=== PATIENT | male | born 1980 | race Hispanic/Latino ===

== ENCOUNTER 2020-07-31 18:40 | Emergency (ER) | payer SELFPAY ==
[2020-07-31 21:12] LABS: Bilirubin,Urine NEG (Negative); Blood,Urine NEG (Negative); Color,Urine Yellow (Yellow); Mucus,Urine FEW /HPF; Protein,Urine <15 mg/dL mg/dL (Negative); Urobilinogen,Urine < 2.0 mg/dL (<2.0)
[2020-07-31 21:19] LABS: Amphetamine Screen,Urine PRESUMPTIVE POSITIVE; Benzodiazepines Screen,Urine PRESUMPTIVE POSITIVE; Cannabinoid Screen,Urine PRESUMPTIVE POSITIVE; Cocaine Screen,Urine PRESUMPTIVE NEGATIVE; Methadone Screen,Urine PRESUMPTIVE NEGATIVE; Opiate Screen,Urine PRESUMPTIVE NEGATIVE
--- NOTE | 2020-07-31 21:51 | Emergency Department Report ---
ED General Adult HPI - General Chief complaint: Psych Stated complaint: SI Time Seen by Provider: 07/31/20 19:08 Source: EMS Mode of arrival: Ambulatory Limitations: No Limitations - History of Present Illness Initial comments: Patient presents to the emergency department because he states he is having suicidal thoughts every 30 seconds. Patient tells me that his lives in [place] and he came to [place] 3 months ago to look for a job he has been homeless since that time. Patient states that his plan to kill himself would be by taking medications. Patient states he has a history of prior suicidal attempt which was slicing his wrist. Patient denies homicidal ideation or have auditory or visual hallucinations. 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 -: unknown Severity scale (0 -10): 0 Improves with: none Worsens with: none Associated Symptoms: denies other symptoms Treatments Prior to Arrival: none - Related Data Home Medications Medication Instructions Recorded Confirmed Last Taken Hydroxyzine HCl [hydrOXYzine] 50 mg PO TID 07/31/20 07/31/20 Unknown Trazodone HCl 150 mg PO HS 07/31/20 07/31/20 Unknown cloNIDine [Catapres] 0.1 mg PO BID 07/31/20 07/31/20 Unknown Allergies Allergy/AdvReac Type Severity Reaction Status Date / Time No Known Allergies Allergy Unverified 07/31/20 20:57 ED Review of Systems ROS: Stated complaint: SI Other details as noted in HPI Constitutional: denies: chills, fever Eyes: denies: eye pain, eye discharge, vision change ENT: denies: ear pain, throat pain Respiratory: denies: cough, shortness of breath, wheezing Cardiovascular: denies: chest pain, palpitations Endocrine: no symptoms reported Gastrointestinal: denies: abdominal pain, nausea, diarrhea Genitourinary: denies: urgency, dysuria Musculoskeletal: denies: back pain, joint swelling, arthralgia Skin: denies: rash, lesions Neurological: denies: headache, weakness, paresthesias Psychiatric: suicidal thoughts. denies: anxiety, depression, auditory hallucinations, visual hallucinations, homicidal thoughts Hematological/Lymphatic: denies: easy bleeding, easy bruising ED Past Medical Hx - Past Medical History Hx Psychiatric Treatment: Yes (PTSD Bipolar, personality disorder) Additional medical history: Right arm sprain 3-4 days ago - Social History Smoking Status: Current Every Day Smoker Substance Use Type: Alcohol, Marijuana - Medications Home Medications: Home Medications Medication Instructions Recorded Confirmed Last Taken Type Hydroxyzine HCl [hydrOXYzine] 50 mg PO TID 07/31/20 07/31/20 Unknown History Trazodone HCl 150 mg PO HS 07/31/20 07/31/20 Unknown History cloNIDine [Catapres] 0.1 mg PO BID 07/31/20 07/31/20 Unknown History ED Physical Exam - General Limitations: No Limitations General appearance: alert, in no apparent distress - Head Head exam: Present: atraumatic, normocephalic - Eye Eye exam: Present: normal appearance - ENT ENT exam: Present: mucous membranes moist - Neck Neck exam: Present: normal inspection - Respiratory Respiratory exam: Present: normal lung sounds bilaterally. Absent: respiratory distress - Cardiovascular Cardiovascular Exam: Present: regular rate, normal rhythm. Absent: systolic murmur, diastolic murmur, rubs, gallop - GI/Abdominal GI/Abdominal exam: Present: soft, normal bowel sounds - Rectal Rectal exam: Present: deferred - Extremities Exam Extremities exam: Present: normal inspection - Back Exam Back exam: Present: normal inspection - Neurological Exam Neurological exam: Present: alert, oriented X3, CN II-XII intact. Absent: motor sensory deficit - Psychiatric Psychiatric exam: Present: anxious, suicidal ideation, other (Patient presents part of thoughts and has tangential and delusional speech) - Skin Skin exam: Present: warm, dry, intact, normal color. Absent: rash ED Course Vital Signs 07/31/20 07/31/20 19:09 20:55 Temperature 98.2 F Pulse Rate 99 H Respiratory 18 18 Rate Blood Pressure 113/73 [Left] O2 Sat by Pulse 98 98 Oximetry ED Medical Decision Making - Lab Data Lab Results 07/31/20 07/31/20 Range/Units 20:49 20:49 Urine Color Yellow (Yellow) Urine Turbidity Clear (Clear) Urine pH 6.0 (5.0-7.0) Ur Specific [place] 1.024 (1.003-1.030) Urine Protein <15 mg/dl (Negative) mg/dL Urine Glucose (UA) Neg (Negative) mg/dL Urine Ketones Neg (Negative) mg/dL Urine Blood Neg (Negative) Urine Nitrite Neg (Negative) Urine Bilirubin Neg (Negative) Urine Urobilinogen < 2.0 (<2.0) mg/dL Ur Leukocyte Esterase Neg (Negative) Urine WBC (Auto) 2.0 (0.0-6.0) /HPF Urine RBC (Auto) 1.0 (0.0-6.0) /HPF U Epithel Cells (Auto) < 1.0 (0-13.0) /HPF Urine Mucus Few /HPF Urine Opiates Screen Presumptive negative Urine Methadone Screen Presumptive negative Ur Barbiturates Screen Presumptive negative Ur Phencyclidine Scrn Presumptive negative Ur Amphetamines Screen Presumptive positive U Benzodiazepines Scrn Presumptive positive Urine Cocaine Screen Presumptive negative U Marijuana (THC) Screen Presumptive positive Drugs of Abuse Note Disclamer - Medical Decision Making 1013 applied Mental health evaluation done Patient refused to give laboratory values thus patient is not medically cleared at this time Critical care attestation.: If time is entered above; I have spent that time in minutes in the direct care of this critically ill patient, excluding procedure time. ED Disposition Clinical Impression: Suicidal ideation Disposition: [id number]/[place]-65 PSY HOSP/PSY UNIT Is pt being admited?: No Does the pt Need Aspirin: No Condition: Stable
[2020-08-01] MEDS ORDERED: ZIPRASIDONE MESYLATE 20 MG VIAL IM ONE ×2 (09:51→09:54)
[2020-08-01] MEDS ORDERED: LORazepam 2 MG/ML VIAL ONE (10:01)
[2020-08-01] MEDS ORDERED: LORazepam 2 MG/ML VIAL IM ONE (10:08)
--- NOTE | 2020-08-01 11:45 | Consultation ---
History of Present Illness - Reason for Consult Consult date: 08/01/20 Reason for consult: MHE Requesting physician: THONG FALCON - History of Present Psychiatric Illness Per ED Provider: Patient presents to the emergency department because he states he is having suicidal thoughts every 30 seconds. Patient tells me that his lives in [place] and he came to [place] 3 months ago to look for a job he has been homeless since that time. Patient states that his plan to kill himself would be by taking medications. Patient states he has a history of prior suicidal attempt which was slicing his wrist. Patient denies homicidal ideation or have auditory or visual hallucinations. 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 Per MHA: Pt is a 40 yo male presenting to ED for MHE, as pt suicidal ideations with a plan to OD, A/V Hallucinations. During ax, pt presented with uncooperative behaviors, anxious mood and incongruent affect. Pt speech is tangential. Pt was directed serveral times to complete the assessment. Pt reports onset of SI with plan to OD on sleeping pills 07/31/20. PT states "I am here for thhe food and to get a good nap, I need a pill for my wrist. Pt identified trigger of lack fo stable housing and social supports. t reports SI and stated, I feel suicidal every 30 seconds, I won't give blood unless you give me a nerve pill or a muscle relaxer". Pt reported hx of attemtps but refused to elaborate. Pt denies HI. Pt reports A/V Hallucinations. Pt reports hx of PTSD, Borderline Personality Disorder. PT reports marijuana abuse. Pt reports smoking 1/2 blunt several times weekly. Last use 07/30/20. PT reports onset age 2. Denies alcohol abuse. Ptreports homelessness. Pt denies legal issues. Pt denies legal issues. 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 PSYCH HPI Patient is a homeless, single and unemployed male with past psychiatric history of PTSD, Schizophrenia, Depression, Anxiety with unknown past medical history who presents to the ED with complaints suicidal thoughts. Patient is hyperfverbal, repittitive and asking me for pain medications for his arm. I informed patient to address his medical needs with the nurse to notify the ED provider. Patient seen talking to self in 3rd person using initials, appears very irritated, and angry and still yelling at me. Patient says his DAD is a piece of shit and mother is a whore. PAST PSYCHIATRIC HISTORY Diagnoses: PTSD, Schizophrenia, Depression, Anxiety Suicide attempts or Self-harm behavior: Yes Prior psychiatric hospitalizations: yes Substance Abuse history: Yes Marijuana Previous psychiatric medications tried: yes Outpatient treatment: unknown PAST MEDICAL HISTORY: Family Psychiatric History: None reported or documented SOCIAL HISTORY Marital Status: Single Living Arrangements: Homeless Employment Status: unemployed Access to guns/weapons: none reported Education: Some college History of Abuse: none reported Legal History: yes REVIEW OF SYSTEMS ROS cannot be reliably obtained from the patient due to his refusal to answer MENTAL STATUS EXAMINATION General Appearance and Behavior: Age appropriate, good hygiene, wearing appropriate clothes, lying in bed, poor eye contact, uncooperative irritable with questioning. Cooperation: Withdrawn, Threatening, Psychomotor Behavior: Psychomotor agitation Mood: Good Affect and affective range: Angry, euthymic, irritable Thought Process:Illogical, Thought Content: Flight of ideas, Illogical, Grandiose, and Paranoid Speech: Normal volume, Regular rate and rhythm Intellectual Functioning: Average Suicidal Ideation: Suicidal Homicidal Ideation: Denies HI Impulse Control: Impaired Insight and Judgment: Limited insight and judgment Memory: Normal Attention: N Divided attention impaired Orientation: Alert, oriented Assessment and Plan - Psychiatric problem (1) Bipolar 1 disorder Current Visit: Yes Status: Acute Treatment Plan MEDICATIONS: Risks, benefits and alternatives of medications discussed with the patient, questions answered and consent obtained from patient. PSYCHOTHERAPY: Supportive psychotherapy provided MEDICAL: Per primary team DELIRIUM PRECAUTIONS: Please re-orient patient frequently, keep lights on during the day, and minimize benzodiazepines and opiates as these medications could worsen patient's confusion. MANAGER RESEARCH: DISPOSITION: Recommend acute inpatient psychiatric hospitalization at this time LEGAL STATUS: 1013 FOLLOW-UP: Will follow Thank you for the consult. Please contact with any questions and/or concerns. Medications and Allergies Allergies Allergy/AdvReac Type Severity Reaction Status Date / Time No Known Allergies Allergy Unverified 07/31/20 20:57 Home Medications Medication Instructions Recorded Confirmed Last Taken Type Hydroxyzine HCl [hydrOXYzine] 50 mg PO TID 07/31/20 07/31/20 Unknown History Trazodone HCl 150 mg PO HS 07/31/20 07/31/20 Unknown History cloNIDine [Catapres] 0.1 mg PO BID 07/31/20 07/31/20 Unknown History Mental Status Exam - Vital signs Last Vital Signs Temp 97.5 F L 08/01/20 07:42 Pulse 92 H 08/01/20 07:42 Resp 18 08/01/20 07:42 BP 122/80 08/01/20 07:42 Pulse Ox 98 08/01/20 07:42 Results All other labs normal. Assessment and Plan - Psychiatric problem (1) Bipolar 1 disorder Current Visit: Yes Status: Acute
[2020-08-01] MEDS ORDERED: risperiDONE 0.25 MG TAB PO SCH (12:00)
[2020-08-01] MEDS: risperiDONE 1 MG TAB PO SCH ×2 (18:49→21:49)
[2020-08-01] MEDS: VALPROIC ACID 250 MG CAP PO SCH ×2 (18:49→21:49)
[2020-08-01 19:05] LABS: Basophils # (Auto) 0.1 K/mm3 (0.0-0.1); Basophils % (Auto) 0.8 % (0.0-1.8); Eosinophils # (Auto) 0.3 K/mm3 (0.0-0.4); Eosinophils % (Auto) 3.2 % (0.0-4.3); Hematocrit 42.9 % (35.5-45.6); Lymphocytes # (Auto) 2.3 K/mm3 (1.2-5.4); Lymphocytes % (Auto) 29.9 % (13.4-35.0); Mean Corpuscular HGB Conc 33 % (32-34); Mean Corpuscular Volume 84 fl (84-94); Monocytes # (Auto) 0.5 K/mm3 (0.0-0.8); Monocytes % (Auto) 6.9 % (0.0-7.3); Platelet Count 333 K/mm3 (140-440); Red Blood Count 5.13 M/mm3 (3.65-5.03); Red Cell Distribution Width 14.6 % (13.2-15.2)
[2020-08-01 19:53] LABS: Blood Urea Nitrogen 12 mg/dL (9-20); Calcium 9.2 mg/dL (8.4-10.2); Hemolysis Index 19
[2020-08-01 19:54] LABS: BUN/Creatinine Ratio 17
[2020-08-01] MEDS ORDERED: ACETAMINOPHEN 500 MG TAB PO ONE (23:38)
[2020-08-01] MEDS ORDERED: ACETAMINOPHEN 500 MG TAB ONE (23:39)
[2020-08-02] MEDS ORDERED: NICOTINE 21 MG/24 HR PATCH TD ONE (01:15)
[2020-08-02] MEDS ORDERED: ZIPRASIDONE MESYLATE 20 MG VIAL IM ONE ×2 (02:44→02:45)
[2020-08-02 07:44] VITALS: BP 129/83
[2020-08-02] MEDS: risperiDONE 1 MG TAB PO SCH (10:12)
[2020-08-02] MEDS: VALPROIC ACID 250 MG CAP PO SCH (10:12)
--- NOTE | 2020-08-02 11:17 | Progress Note ---
Subjective - Reason for Consult Consult date: 08/02/20 Reason for consult: MHE Requesting physician: TRENA DOBBINS - Chief Complaint Chief complaint: ED Nurse: Pt on the hallway yelling and asking for some juice. Pt was already g iven 5 cups of juice and told him he can have water but got upet and started yelling and hitting his head with his hands. DR. Dobbins informed and ordered medication to pt. Psych Progress Patient seen this AM, patient keeps asking me for pain medications, says his arm is killing him, same thing happened yesterday, I informed patient I do no provide pain medication, patient then asked for food, juice, was very loud and kept yelling. I informed patient he clearly sees his physical pain as a priority, I will rescind his 1013 to seek further medical care for his hand. Says his suicidal ideation is conditional to pain in his right hand. MENTAL STATUS EXAMINATION General Appearance and Behavior: Age appropriate, good hygiene, wearing appropriate clothes, , poor eye contact, uncooperative irritable with questioning. Cooperation: Withdrawn, Threatening, Psychomotor Behavior: Psychomotor agitation Mood: Good Affect and affective range: Angry, euthymic, irritable Thought Process:Illogical, Thought Content: Flight of ideas, Illogical, Grandiose, and Paranoid Speech: Normal volume, Regular rate and rhythm Intellectual Functioning: Average Suicidal Ideation: Suicidal conditional to pain Homicidal Ideation: Denies HI Impulse Control: Impaired Insight and Judgment: Limited insight and judgment Memory: Normal Attention: N Divided attention impaired Orientation: Alert, oriented Assessment and Plan - Psychiatric problem (1) Bipolar 1 disorder Current Visit: Yes Status: Acute Treatment Plan Patient has been constantly asking for pain meds, food and juice, says his SI is condition to pain in arm. He is uncoperative with staff, had intially refused labs and made it clear pain in his arm is priority hence im recommend psychiatric release for further medical management MEDICATIONS: Risks, benefits and alternatives of medications discussed with the patient, questions answered and consent obtained from patient. PSYCHOTHERAPY: Supportive psychotherapy provided MEDICAL: Per primary team DELIRIUM PRECAUTIONS: Please re-orient patient frequently, keep lights on during the day, and minimize benzodiazepines and opiates as these medications could worsen patient's confusion. THERMAL MOLDER: DISPOSITION: Do not Recommend acute inpatient psychiatric hospitalization at this time LEGAL STATUS: 1013 rescinded FOLLOW-UP: Will sign off Thank you for the consult. Please contact with any questions and/or concerns. Mental Status Exam - Vital signs Last Vital Signs Temp 97.9 F 08/02/20 07:42 Pulse 88 08/02/20 07:42 Resp 17 08/02/20 07:42 BP 129/83 08/02/20 07:42 Pulse Ox 98 08/02/20 07:42 Assessment and Plan - Patient Problems (1) Bipolar 1 disorder Current Visit: Yes Status: Acute
[2020-08-02] MEDS ORDERED: KETOROLAC 60 MG/2 ML INJ IM ONE (13:14)
== END 2020-08-02 13:34 | disposition home or self-care (01) ==
LOC: ED 18:40 → EEVIPCON 18:40 → ED 08-02 13:34
DX: R45.851 Suicidal ideations (principal); F31.9 Bipolar disorder, unspecified; F17.200 Nicotine dependence, unspecified, uncomplicated; F12.10 Cannabis abuse, uncomplicated; Z79.899 Other long term (current) drug therapy
CPT/HCPCS: 29125; 36415; 80307; 81001; 96372; 99285; J2060; J3486

== ENCOUNTER 2020-08-03 23:42 | Emergency (ER) | payer SELFPAY ==
--- NOTE | 2020-08-04 00:09 | Emergency Department Report ---
ED Psych HPI - General Chief Complaint: Psych Stated Complaint: SI Time Seen by Provider: 08/03/20 23:55 Source: patient, EMS Mode of arrival: Ambulatory Limitations: No Limitations - History of Present Illness Initial Comments: CC: "It's really cold outside. I am homeless. I need a shower, juice and food." HPI: CARLO is a 40 yo male with hx of bipolar disorder, borderline personality disorder, PTSD, schizophrenia, depression, anxiety who desires assisted from the cold outside. He also desires food. He states "I am having suicidal thoughts. I do not have a plan but I could make one up." When I informed him that psychiatrist recently cleared him, he explained that he thought the consult was not yesterday but 1 or 2 days earlier. MD Complaint: suicidal ideation -: Gradual, days(s) (several days) Associated Psychiatric Symptoms: depression, suicidal ideation History of same: Yes Quality: constant Improves With: none Worsens With: none Context: not taking psychiatric Associated Symptoms: denies other symptoms Treatments Prior to Arrival: none If Self Harm: admits thoughts of - Related Data Home Medications Medication Instructions Recorded Confirmed Last Taken Hydroxyzine HCl [hydrOXYzine] 50 mg PO TID 07/31/20 07/31/20 Unknown Trazodone HCl 150 mg PO HS 07/31/20 07/31/20 Unknown cloNIDine [Catapres] 0.1 mg PO BID 07/31/20 07/31/20 Unknown Previous Rx's Medication Instructions Recorded Last Taken Type Ibuprofen [Motrin] 800 mg PO Q8HR PRN #20 tablet 08/02/20 Unknown Rx Allergies Allergy/AdvReac Type Severity Reaction Status Date / Time No Known Allergies Allergy Unverified 07/31/20 20:57 ED Review of Systems ROS: Stated complaint: SI Other details as noted in HPI Comment: All other systems reviewed and negative Constitutional: denies: fever, malaise Respiratory: denies: cough, shortness of breath Cardiovascular: denies: chest pain Gastrointestinal: denies: abdominal pain, nausea, vomiting ED Past Medical Hx - Past Medical History Previous Medical History?: Yes Hx Psychiatric Treatment: Yes (PTSD Bipolar, personality disorder) Additional medical history: Right arm sprain 3-4 days ago - Surgical History Past Surgical History?: Yes Additional Surgical History: jaw suregry - Social History Smoking Status: Current Every Day Smoker Substance Use Type: Alcohol, Marijuana - Medications Home Medications: Home Medications Medication Instructions Recorded Confirmed Last Taken Type Hydroxyzine HCl [hydrOXYzine] 50 mg PO TID 07/31/20 07/31/20 Unknown History Trazodone HCl 150 mg PO HS 07/31/20 07/31/20 Unknown History cloNIDine [Catapres] 0.1 mg PO BID 07/31/20 07/31/20 Unknown History Ibuprofen [Motrin] 800 mg PO Q8HR PRN #20 tablet 08/02/20 Unknown Rx ED Physical Exam - General Limitations: No Limitations General appearance: alert, in no apparent distress - Head Head exam: Present: atraumatic, normocephalic - Eye Eye exam: Present: normal appearance - ENT ENT exam: Present: mucous membranes moist - Neck Neck exam: Present: normal inspection, full ROM - Respiratory Respiratory exam: Present: normal lung sounds bilaterally. Absent: respiratory distress, wheezes, rales, rhonchi - Cardiovascular Cardiovascular Exam: Present: regular rate, normal rhythm, normal heart sounds. Absent: systolic murmur, diastolic murmur, rubs, gallop - GI/Abdominal GI/Abdominal exam: Present: soft, normal bowel sounds. Absent: distended, tenderness, guarding, rebound - Rectal Rectal exam: Present: deferred - Extremities Exam Extremities exam: Present: normal inspection - Neurological Exam Neurological exam: Present: alert, oriented X3 - Psychiatric Psychiatric exam: Present: normal mood, flat affect, suicidal ideation - Skin Skin exam: Present: warm, dry, intact, normal color. Absent: rash ED Medical Decision Making - Medical Decision Making Mr. marinelli is a 40-year-old male with history of PTSD, bipolar disorder, borderline personality disorder, schizophrenia who presents with "suicidal thoughts". He did not have a plan to harm himself or others. On my examination patient is jovial conversant. He was quite honest. I do not feel that he is at risk of harm to himself. He was very RSI he required assisted from the [facility]. Nursing staff provided snacks. Nurses have also provided materials for hygiene. He is discharged to self-care. Next Considering extensive evaluation by psychiatrist over the last 2 days, he does not require any further treatment and evaluation. He was just discharged on yesterday after psychiatric treatment during 2-day observation. Critical care attestation.: If time is entered above; I have spent that time in minutes in the direct care of this critically ill patient, excluding procedure time. ED Disposition Clinical Impression: Suicidal ideation, Bipolar 1 disorder Disposition: DC-01 TO HOME OR SELFCARE Is pt being admited?: No Does the pt Need Aspirin: No Condition: Stable [facility]
== END 2020-08-04 00:23 | disposition home or self-care (01) ==
LOC: ED 23:42
DX: F31.9 Bipolar disorder, unspecified (principal); F17.200 Nicotine dependence, unspecified, uncomplicated; F12.10 Cannabis abuse, uncomplicated; Z79.899 Other long term (current) drug therapy
CPT/HCPCS: 99283